=== PATIENT | female | born 1960 | race Caucasian/White ===

== ENCOUNTER → 2017-09-02 | Outpatient (CLI) | payer OTHER ==
[~2017-09-02] MED LIST: LACT1CAP37 PO; LISI-167 PO; anti-inflammatory PO
== END | disposition home or self-care (01) ==
LOC: CFH 14:45
PROVIDERS: ATTEND Family Medicine
DX: M51.37 Other intervertebral disc degeneration, lumbosacral region (principal); M16.0 Bilateral primary osteoarthritis of hip
CPT/HCPCS: 72100

== ENCOUNTER → 2018-07-21 | Outpatient (CLI) | payer OTHER | END | disposition home or self-care (01) | LOC: CFH 14:20 | PROVIDERS: ATTEND Family Medicine | DX: M47.897 Other spondylosis, lumbosacral region (principal); M51.26 Other intervertebral disc displacement, lumbar region | CPT/HCPCS: 72148 ==

== ENCOUNTER → 2018-08-05 | Outpatient (CLI) | payer OTHER | END | disposition home or self-care (01) | LOC: CFH 08:34 | PROVIDERS: ATTEND Obstetrics & Gynecology | DX: Z12.31 Encounter for screening mammogram for malignant neoplasm of breast (principal) | CPT/HCPCS: 77067 ==

== ENCOUNTER 2018-11-11 11:56 | Outpatient (CLI) | payer OTHER | END 2018-11-11 23:59 | disposition home or self-care (01) | LOC: CFH 11:56 | PROVIDERS: ATTEND Family Medicine | DX: M79.644 Pain in right finger(s) (principal); R22.41 Localized swelling, mass and lump, right lower limb ==